=== PATIENT | male | born 1935 | race Two or more races ===

== ENCOUNTER 2022-03-06 22:28 | Inpatient (IN) | payer MEDICARE, OTHER ==
[~2022-03-06] VITALS: Ht 165.1 cm; Wt 68.0 kg
--- NOTE | 2022-03-06 22:34 | NUR ---
[id number]. ABD PAIN W/ DISTENTION AND SCROTAL SWELLING X 3 DAYS. PLACED ON BED, AAOX4, BREATHING EVEN AND UNLABORED SATURATING AT 98%RA. SEEN AND EXAMINED BY .
--- NOTE | 2022-03-06 22:40 | NUR ---
SURGICAL FORCEPS FABRICATOR AT BED SIDE
--- NOTE | 2022-03-06 22:43 | NUR ---
PATIENT TAKEN TO CT VIA [facility]
[2022-03-06 22:47] LABS: BASOPHILS % (AUTO) 0.2 % (0.0-2.0); EOSINOPHILS % (AUTO) 0.2 % (0.0-6.0); HEMATOCRIT 45 % (39-51); HEMOGLOBIN 15.1 g/dL (13.5-17.5); LYMPHOCYTES # (AUTO) 0.7 K/uL (0.8-4.8); LYMPHOCYTES % (AUTO) 6.7 % (20.0-44.0); MEAN CORPUSCULAR HGB CONC 34 g/dl (31.0-36.0); MEAN CORPUSCULAR VOLUME 82 fL (80-96); MONOCYTES # (AUTO) 1.2 K/uL (0.1-1.30); MONOCYTES % (AUTO) 11.5 % (2.0-12.0); NEUTROPHILS # (AUTO) 8.4 K/uL (1.8-8.9); NEUTROPHILS % (AUTO) 81.4 % (43.0-81.0); PLATELET COUNT (AUTO) 167 K/uL (150-450); RED BLOOD CELL COUNT(AUTO) 5.47 MIL/uL (4.5-6.0); WHITE BLOOD COUNT (AUTO) 10.4 K/uL (4.3-11.0)
--- NOTE | 2022-03-06 22:51 | NUR ---
PT RETURNED TO ER BED7 FROM CT
--- NOTE | 2022-03-06 23:24 | NUR ---
URINE SAMPLE SENT TO LAB
[2022-03-06 23:37] LABS: BILIRUBIN,URINE NEGATIVE (NEGATIVE); COLOR,URINE YELLOW (YELLOW); LEUKOCYTE ESTERASE ,URINE TRACE (NEGATIVE); NITRITE, URINE NEGATIVE (NEGATIVE); PROTEIN,URINE 30 mg/dl (NEGATIVE); UGLUCOSE NEGATIVE (NEGATIVE)
[2022-03-06 23:58] LABS: BACTERIA,URINE Few /HPF (None Seen); RBC,URINE TOO NUMEROUS TO COUN /HPF (0-2); SQUAMOUS EPITHELIAL CELL,UR Rare /HPF (None Seen)
[2022-03-07 00:36] LABS: ALANINE AMINOTRANSFERASE 44 U/L (12-78); ALBUMIN 2.8 g/dL (3.4-5.0); ALKALINE PHOSPHATASE 75 U/L (46-116); ASPARTATE AMINOTRANSFERASE 43 U/L (15-37); BILIRUBIN,TOTAL 0.7 mg/dL (0.2-1.0); CALCIUM, SERUM 8.7 mg/dL (8.5-10.1); CARBON DIOXIDE 21 mmol/L (21-32); CHLORIDE 100 mmol/L (98-107); CREATININE 1.4 mg/dL (0.6-1.3); GLUCOSE 196 mg/dL (74-106); POTASSIUM 4.2 mmol/L (3.5-5.1); SODIUM SERUM 134 mmol/L (136-145); TOTAL PROTEIN, SERUM 6.7 g/dL (6.4-8.2); UREA NITROGEN, BLOOD 21 mg/dL (7-18)
[2022-03-07] MEDS ORDERED: ACETAMINOPHEN 325 MG TABLET PO PRN (03:00)
[2022-03-07] MEDS ORDERED: ONDANSETRON HCL/PF 4 MG/2 ML VIAL IVP PRN (03:00)
[2022-03-07] MEDS ORDERED: HYDROCODONE/APAP 5/325MG TABLET PO PRN (03:00)
[2022-03-07] MEDS ORDERED: Z GUARD REMEDY 4 OZ OINT TP PRN (03:00)
--- NOTE | 2022-03-07 03:49 | NUR ---
MRSA SWAB COLLECTED AND SENT TO LAB. PATIENT'S BELONGINGS LIST DONE.
--- NOTE | 2022-03-07 03:50 | NUR ---
REPORT GIVEN TO JARROD VELIZ.
--- NOTE | 2022-03-07 04:45 | NUR ---
MS GRINDER SET UP OPERATOR EXTERNAL NOTE RECEIVED THIS PATIENT FROM ER VIA [place]; AWAKE, ALERT AND ORIENTED X2. ADMITTED WITH C/C OF ABDOMINAL PAIN, URINARY DISTENTION AND SCROTAL SWELLING. PATIENT IS CHINESE SPEAKING UNDERSTAND SOME SINGAPOREAN. BREATHING IS EVEN AND NONLABORED. ON ROOM AIR; TOLERATING WELL. VITAL SIGNS TAKEN AND RECORDED FOLLOWS: TEMP-98.3, SC-82, RR-19, BP-141/67 MMHG, O2 SATURATION 98%. IN NO ACUTE DISTRESS NOTED. DENIES ANY PAIN OR DISCOMFORT OF THIS TIME. WITH IV ACCESS ON LEFT HAND; PATENT AND INTACT INFUSING WITH LR 1L REGULATED @ 75 ML/HR; FLUSHES WELL. SKIN ASSESSMENT DONE; WARM TO TOUCH. SCROTAL SWELLING NOTED. PICTURES TAKEN AND ATTACHED TO CHART. WITH POMPA CATHETER ATTACHED TO UROBAG DRAINING VIA GRAVITY TO BLOODY URINE. NEEDS ANTICIPATED AND ATTENDED. PERSONAL BELONGINGS CHECKED AND INVENTORY DONE. ORIENTED TO THE ROOM AND TO THE UNIT. SAFETY MEASURES IMPLEMENTED: CALL LIGHT AND TABLE WITHIN REACH, SIDE RAILS UP X2, BED IN LOWEST LOCKED POSITION. WILL CONTINUE TO MONITOR
[2022-03-07] MEDS: IV LR 1000 ML 1,000 ML IV PRN ×2 (05:19→22:12)
--- NOTE | 2022-03-07 07:03 | NUR ---
MS RN CLOSING NOTE PATIENT IS RESTING IN BED; ASLEEP, EASILY AROUSABLE UPON VERBAL STIMULI; STABLE. NO SIGNIFICANT CHANGE IN STATUS. ALL DUE MEDS GIVEN ORDERED. SAFETY MEASURES IN PLACE. ENDORSED TO MORNING SHIFT FOR ZEESHAN.
--- NOTE | 2022-03-07 07:15 | NUR ---
MS RN OPENING NOTE: RECEIVED PATIENT IN BED; AWAKE, A0X2-3, FARSI SPEAKING AND UNDERSTANDS A LITTLE BIT OF GERMAN. FAMILY AT BEDSIDE HELPS TO TRANSLATE. ABLE TO MAKE NEEDS KNOWN. NO COMPLAINT OF PAIN/DISCOMFORT AT THIS TIME. ON ROOM AIR WITH NO S/S OF RESPIRATORY DISTRESS. PT. IS ON BED REST WITH F/C THAT'S PATENT AND DRAINING WELL. PT. HAS IV ON L HAND WITH #20G, LR RUNNING AT 75ML/HR. PATENT AND RUNNING WELL WITH NO S/S OF PHLEBITIS AND INFILTRATION. SAFETY, FALL AND PRESSURE ULCER PRECAUTIONS IN PLACE: BED IN LOWEST AND LOCKED POSITION, SIDE RAILS UP X2, CALL LIGHT AND BELONGINGS WITHIN EASY REACH, BED ALARM ON, WILL TURN AND REPOSITION Q2H. WILL CONTINUE TO MONITOR FOR ANY CHANGES.
[2022-03-07 07:22] LABS: BASOPHILS % (AUTO) 0.3 % (0.0-2.0); EOSINOPHILS % (AUTO) 0.4 % (0.0-6.0); HEMATOCRIT 42 % (39-51); HEMOGLOBIN 14.2 g/dL (13.5-17.5); LYMPHOCYTES # (AUTO) 0.7 K/uL (0.8-4.8); LYMPHOCYTES % (AUTO) 8.1 % (20.0-44.0); MEAN CORPUSCULAR HGB CONC 33 g/dl (31.0-36.0); MEAN CORPUSCULAR VOLUME 82 fL (80-96); MONOCYTES # (AUTO) 1.3 K/uL (0.1-1.30); MONOCYTES % (AUTO) 14.4 % (2.0-12.0); NEUTROPHILS # (AUTO) 6.7 K/uL (1.8-8.9); NEUTROPHILS % (AUTO) 76.8 % (43.0-81.0); PLATELET COUNT (AUTO) 169 K/uL (150-450); RED BLOOD CELL COUNT(AUTO) 5.15 MIL/uL (4.5-6.0); WHITE BLOOD COUNT (AUTO) 8.8 K/uL (4.3-11.0)
[2022-03-07] MEDS: PANTOPRAZOLE 40 MG TABLET.DR PO SCH (08:01)
[2022-03-07 08:12] LABS: CALCIUM, SERUM 8.4 mg/dL (8.5-10.1); CREATININE 1.1 mg/dL (0.6-1.3); MAGNESIUM 2.3 mg/dL (1.8-2.4)
[2022-03-07] MEDS ORDERED: HEPARIN SODIUM, PORCINE 5000 UNITS/1 ML VIAL SQ SCH (09:00)
[2022-03-07 09:54] VITALS: BP 158/78
[2022-03-07] MEDS ORDERED: RIBO100T3 PO (11:34)
[2022-03-07] MEDS ORDERED: SODI1TAB66 PO (11:34)
[2022-03-07] MEDS ORDERED: TAMS-12 PO (11:34)
[2022-03-07] MEDS ORDERED: FLUT1BLS6 INH (11:34)
[2022-03-07] MEDS ORDERED: MELA5TAB PO (11:34)
[2022-03-07] MEDS ORDERED: IBAN150T16 PO (11:34)
[2022-03-07] MEDS ORDERED: FLUT16SP16 BNOSTRILS (11:34)
[2022-03-07] MEDS ORDERED: METO25TA20 PO (11:34)
[2022-03-07] MEDS ORDERED: ERGO500093 PO (11:34)
[2022-03-07] MEDS ORDERED: DOCU-141 PO (11:34)
[2022-03-07] MEDS ORDERED: METF500T3 PO (11:34)
[2022-03-07] MEDS ORDERED: ROSU10TA29 PO (11:34)
[2022-03-07] MEDS ORDERED: CITA20TA16 PO (11:34)
[2022-03-07] MEDS ORDERED: DICL100G34 TP (11:34)
[2022-03-07] MEDS ORDERED: PANT40TA2 PO (11:34)
[2022-03-07] MEDS: CEFTRIAXONE 1 G in IV D5W 50 ML IV SCH (13:49)
[2022-03-07 16:03] VITALS: BP 124/70
[2022-03-07] MEDS ORDERED: Medication Not On Formulary EA (Melatonin 5 MG) PO SCH (18:00)
[2022-03-07] MEDS: CITALOPRAM HYDROBROMIDE 20 MG TABLET PO SCH (18:37)
[2022-03-07] MEDS: ATORVASTATIN 10 MG TABLET PO SCH (18:37)
[2022-03-07] MEDS: DOCUSATE SODIUM 100 MG CAPSULE PO SCH (18:37)
[2022-03-07] MEDS: TAMSULOSIN 0.4 MG CAP.SR.24H PO SCH (18:37)
[2022-03-07] MEDS: SODIUM CHLORIDE 1000 MG TABLET PO SCH (18:37)
--- NOTE | 2022-03-07 19:20 | NUR ---
MS RN CLOSING NOTE: PATIENT REMAINS IN BED; AWAKE, A0X2-3, FARSI SPEAKING AND UNDERSTANDS A LITTLE BIT OF JAPANESE. FAMILY HELPS TO TRANSLATE. ABLE TO MAKE NEEDS KNOWN. NO COMPLAINT OF PAIN/DISCOMFORT AT THIS TIME. REMAINS ON ROOM AIR, BREATHING EVEN AND UNLABORED. PT. HAS F/C THAT'S PATENT AND DRAINING WELL WITH OUTPUT OF 325 ML OF BLOODY URINE THIS SHIFT. MD AWARE. AFTER 12NN, PT. STARTED TO HAVE DEVICE REPAIR TECHNICIAN PINK TO YELLOW CLEAR URINE OUTPUT. PT. HAS IV ON L HAND WITH #20G, LR RUNNING AT 75ML/HR. PATENT AND RUNNING WELL WITH NO S/S OF PHLEBITIS AND INFILTRATION. SAFETY, FALL AND PRESSURE ULCER PRECAUTIONS MAINTAINED: BED IN LOWEST AND LOCKED POSITION, SIDE RAILS UP X2, CALL LIGHT AND BELONGINGS WITHIN EASY REACH, BED ALARM ON, ENCOURAGED PT. REPOSITIONING IN BED AT LEAST Q2H. WILL ENDORSE CONTINUITY OF CARE TO LANGUAGE PATH RN.
--- NOTE | 2022-03-07 19:22 | NUR ---
RN NOTES. PT TRYING TO PULLOUT F/C AND IV SITE.NOTED BLOODY URINE ON THE BAG.HIS TRYING TO GET OUT FROM BED.I TEXTED WITH A NEW ORDER BOTH WRIST RESTRAINE. AND FOLLOW PROTOCOL.
--- NOTE | 2022-03-07 19:34 | NUR ---
RN OPENING NOTES. RECEIVED PATIENT IN BED [id number], FARSI SPEAKING AND UNDERSTANDS A LITTLE BIT OF [place]. PT.MIKEL WELL ON RM AIR WITH NO SIGN SOB/DISTRESS NOTED.IV ACCESS L HAND #20G, LR RUNNING AT 75ML/HR. PATENT AND INTACT.SAFETY,SAFETY MEASURE IN PLACE.BED IN LOWEST AND LOCKED POSITION, SIDE RAILS UP X2, CALL LIGHT WITHIN REACH.BED ALARM ON,WILL CONTINUE TO MONITOR.
[2022-03-07 20:00] VITALS: BP 164/82
[2022-03-07] MEDS: FINASTERIDE (5 MG) 5 MG TABLET PO SCH (22:29)
--- NOTE | 2022-03-08 01:10 | NUR ---
RN NOTES PT NOTED HIS TRYING PULLOUT THE F/C WITH HIS RT HAND.I WAS TELLING HIM NOT TO PULLOUT F/C ALSO GENTLY PULLING HIS HAND FROM F/C.I WAS TRYING TO REPOSITION THE F/C AWAY THAT HE CANNOT REACH IT AND HE KICK ME IN MY CHEST THEN I WALKED AWAY.I TEXTED ELY WITH A NEW ORDERS.
[2022-03-08] MEDS ORDERED: LORAZEPAM INJ 2 MG/ML VIAL IV ONE (01:30)
[2022-03-08] MEDS ORDERED: diphenhydrAMINE HCL 50 MG/ML VIAL IV ONE (01:30)
--- NOTE | 2022-03-08 01:46 | NUR ---
RN NOTES PT CONTINUE SCREAMING,YELLING,PULLING THE IV SITE.KICKING,STRIKING TO NURSES.6 NURSES HELP TO CALM HIM DOWNE.ATIVAN 1MG AND BENADRYL 25MG ONCE WAS GIVEN ORDERD.NO SIGN A/R NOTED.
[2022-03-08 06:54] LABS: BASOPHILS % (AUTO) 0.2 % (0.0-2.0); EOSINOPHILS % (AUTO) 0.6 % (0.0-6.0); HEMATOCRIT 45 % (39-51); LYMPHOCYTES # (AUTO) 1.1 K/uL (0.8-4.8); LYMPHOCYTES % (AUTO) 11.4 % (20.0-44.0); MEAN CORPUSCULAR HGB CONC 34 g/dl (31.0-36.0); MEAN CORPUSCULAR VOLUME 83 fL (80-96); MONOCYTES # (AUTO) 1.4 K/uL (0.1-1.30); MONOCYTES % (AUTO) 14.7 % (2.0-12.0); NEUTROPHILS # (AUTO) 7.1 K/uL (1.8-8.9); NEUTROPHILS % (AUTO) 73.1 % (43.0-81.0); PLATELET COUNT (AUTO) 190 K/uL (150-450); RED BLOOD CELL COUNT(AUTO) 5.42 MIL/uL (4.5-6.0); WHITE BLOOD COUNT (AUTO) 9.7 K/uL (4.3-11.0)
--- NOTE | 2022-03-08 06:59 | NUR ---
RN CLOSING NOTES. PATIENT IN BED SLEEPING BUT EASY TO AROUSED.AOX2 WITH CONFUSION.FARSI SPEAKING AND UNDERSTANDS A LITTLE BIT OF [place].MIKEL WELL ON RM AIR WITH NO SIGN SOB/DISTRESS NOTED.IV ACCESS RICK #20G, LR RUNNING AT 75ML/HR. PATENT AND INTACT.F/C PATENT DRAINING BLOOD THIN URINE CAUSED PT TRYING TO PULLOUT.SAFETY MEASURE IN PLACE.BED IN LOWEST AND LOCKED POSITION, SIDE RAILS UP X2, CALL LIGHT WITHIN REACH.BED ALARM ON,WILL ENDORSED TO NEXT SHIFT.
[2022-03-08 07:17] LABS: CALCIUM, SERUM 9.3 mg/dL (8.5-10.1); CREATININE 1.1 mg/dL (0.6-1.3); MAGNESIUM 2.4 mg/dL (1.8-2.4); PHOSPHORUS 4.1 mg/dL (2.5-4.9); POTASSIUM 4.4 mmol/L (3.5-5.1)
[2022-03-08] MEDS: PANTOPRAZOLE 40 MG TABLET.DR PO SCH ×2 (07:30→09:07)
--- NOTE | 2022-03-08 07:30 | NUR ---
RN MS NOTES PT IN BED, ASLEEP, EASY TO AROUSE, ALERT, NOT IN DISTRESS, CALL LIGHT WITHIN REACH, F/C INTACT AND DRAINING WELL WITH BLOOD TINGED URINE, SEEN BY PHYSICAL THERAPIST, KEPT COMFORTABLE IN BED.
[2022-03-08 08:00] VITALS: BP 161/91
[2022-03-08] MEDS ORDERED: Medication Not On Formulary EA (Fluticasone/Umeclidin/Vilanter (Trelegy Ellipta 100-62.5 INH SCH (09:00)
[2022-03-08] MEDS ORDERED: RIBOFLAVIN 100 MG PO SCH (09:00)
[2022-03-08] MEDS: METOPROLOL TARTRATE 25 MG TABLET PO SCH (09:06)
[2022-03-08] MEDS: DOCUSATE SODIUM 100 MG CAPSULE PO SCH ×2 (09:06→17:24)
[2022-03-08] MEDS: SODIUM CHLORIDE 1000 MG TABLET PO SCH ×2 (09:06→17:24)
[2022-03-08] MEDS: FINASTERIDE (5 MG) 5 MG TABLET PO SCH (09:06)
--- NOTE | 2022-03-08 11:27 | NUR ---
RN MS NOTES ENDORSED PT TO PEDRO GARAY FOR CONTINUITY OF CARE.
[2022-03-08] MEDS: CEFTRIAXONE 1 G in IV D5W 50 ML IV SCH (12:13)
[2022-03-08] MEDS ORDERED: OLANZAPINE 2.5 MG TABLET PO PRN (12:30)
[2022-03-08] MEDS: ATORVASTATIN 10 MG TABLET PO SCH (17:24)
[2022-03-08] MEDS: CITALOPRAM HYDROBROMIDE 20 MG TABLET PO SCH (17:24)
[2022-03-08] MEDS: TAMSULOSIN 0.4 MG CAP.SR.24H PO SCH (17:24)
[2022-03-08] MEDS: AMLODIPINE BESYLATE 5 MG TABLET PO SCH (18:44)
--- NOTE | 2022-03-08 18:55 | NUR ---
RN CLOSING NOTE PATIENT IN BED SLEEPING BUT EASY TO WAKE UP. PATIENT IS AOX2 WITH SOME CONFUSION.FARSI SPEAKING AND UNDERSTANDS A LITTLE BIT OF ROMANIAN.ON ROOM AIR, TOLERATED WELL, WITH NO SIGN SOB/DISTRESS NOTED.IV ACCESS RICK #20G, ON SALINE LOCK. WITH POMPA CATHETER TO URINE BAG, WITH SOME BLOODY SEDIMENTS BUT URINE HAD CLEARED ALREADY. SAFETY MEASURE IN PLACE. BED IN LOWEST AND LOCKED POSITION, SIDE RAILS UP X2, CALL LIGHT WITHIN REACH.BED ALARM ON. ENDORSED TO NEXT SHIFT FOR CONTINUITY OF CARE.
--- NOTE | 2022-03-08 19:35 | NUR ---
RN OPENING NOTE PATIENT IN BED SLEEPING BUT EASY TO WAKE UP. PATIENT IS AOX2 WITH SOME CONFUSION.FARSI SPEAKING AND UNDERSTANDS A LITTLE BIT OF [place].ON ROOM AIR, TOLERATED WELL, WITH NO SIGN SOB/DISTRESS NOTED.IV ACCESS RICK #20G, ON SALINE LOCK. WITH POMPA CATHETER TO URINE BAG, SAFETY MEASURE IN PLACE. BED IN LOWEST AND LOCKED POSITION, SIDE RAILS UP X2, CALL LIGHT WITHIN REACH.BED ALARM ON. WILL CONTINUE TO MONITOR.
[2022-03-08 20:00] VITALS: BP 113/65
[2022-03-08] MEDS: OLANZAPINE 2.5 MG TABLET PO SCH (21:54)
--- NOTE | 2022-03-09 00:06 | NUR ---
RN NOTES PTS SCROTUM ULTRASOUND RESULTED INFORMED FREEZER OPERATOR ERMELINDA. NO NEW ORDERS AT THIS TIME. WILL LET MORNING NURSE F/U WIT PRIMARY PHYSICIAN.
[2022-03-09] MEDS ORDERED: DEXTROSE 50%-WATER 50 ML DISP.SYRIN IV PRN (05:30)
[2022-03-09] MEDS ORDERED: INSULIN REGULAR, HUMAN 100 UNIT/ML 3 ML VIAL SQ PRN (05:30)
--- NOTE | 2022-03-09 06:43 | NUR ---
RN CLOSING NOTE PATIENT IN BED SLEEPING BUT EASY TO WAKE UP. PATIENT IS AOX2 WITH SOME CONFUSION.FARSI SPEAKING AND UNDERSTANDS A LITTLE BIT OF [place]OURG[place].ON ROOM AIR, TOLERATED WELL, WITH NO SIGN SOB/DISTRESS NOTED.IV ACCESS RICK #20G, ON SALINE LOCK. WITH POMPA CATHETER TO URINE BAG, SAFETY MEASURE IN PLACE. BED IN LOWEST AND LOCKED POSITION, SIDE RAILS UP X2, CALL LIGHT WITHIN REACH.BED ALARM ON. WILL ENDORSE CARE TO DAY SHIFT NURSE.
[2022-03-09] MEDS ORDERED: BLOOD SUGAR DIAGNOSTIC 1 EACH STRIP IN SCH (07:30)
--- NOTE | 2022-03-09 07:30 | NUR ---
MS RN OPENING NOTES. RECEIVED PATIENT IN BED A0X2-3, FARSI SPEAKING AND UNDERSTANDS A LITTLE BIT OF [place]CC[place]. PT.MIKEL WELL ON ROOM AIR WITH NO SIGN SOB/DISTRESS NOTED , NO C/O OF PAIN AND DISCOMFORT IV ACCESS L HAND #20G SL PATENT AND INTACT ,SAFETY MEASURES IN PLACE. BED IN LOWEST AND LOCKED POSITION, SIDE RAILS UP X2, CALL LIGHT WITHIN REACH.BED ALARM ON,WILL CONTINUE TO MONITOR.
[2022-03-09 08:00] VITALS: BP 101/65
[2022-03-09] MEDS: PANTOPRAZOLE 40 MG TABLET.DR PO SCH (08:34)
[2022-03-09] MEDS: METOPROLOL TARTRATE 25 MG TABLET PO SCH (09:30)
[2022-03-09] MEDS: AMLODIPINE BESYLATE 5 MG TABLET PO SCH ×2 (09:31→17:02)
[2022-03-09] MEDS: SODIUM CHLORIDE 1000 MG TABLET PO SCH ×2 (09:32→17:03)
[2022-03-09] MEDS: DOCUSATE SODIUM 100 MG CAPSULE PO SCH ×2 (09:32→17:03)
--- NOTE | 2022-03-09 09:50 | NUR ---
MS/RN OPENING NOTE RECEIVED PATIENT RESTING IN BED. AWAKE, ALERT AND ORIENTED X 2. PRIMARILY FARSI SPEAKING. ABLE TO MAKE NEEDS KNOWN. DENIES PAIN AT THIS TIME. CONTINUES ON ROOM AIR WITH NO S/SX OF RESPIRATORY DISTRESS NOTED. IV ACCESS TO RIGHT UPPER ARM #20G INTACT AND PATENT. CONTINUES ON IVF LR @ 75ML/HR. CONTINUES ON IV ABX. CALL LIGHT WITHIN REACH. ASPIRATION, FALL AND SAFETY PRECAUTIONS MAINTAINED. ALL NEEDS ATTENDED TO AT THIS TIME. Addendum: 03/09/22 at 2009 by CARL FOSTER RN TIME OF NOTE IS 1950.
[2022-03-09] MEDS: FINASTERIDE (5 MG) 5 MG TABLET PO SCH (10:43)
[2022-03-09 11:17] LABS: PROSTATE SPECIFIC ANTIGEN SCR 14.46 ng/mL (0.00-4.00)
[2022-03-09] MEDS: CITALOPRAM HYDROBROMIDE 20 MG TABLET PO SCH (17:06)
[2022-03-09] MEDS: ATORVASTATIN 10 MG TABLET PO SCH (17:35)
[2022-03-09] MEDS: TAMSULOSIN 0.4 MG CAP.SR.24H PO SCH (17:35)
--- NOTE | 2022-03-09 19:11 | NUR ---
MS RN CLOSING NOTE Patient in bed, resting comfortably. A/O x 2-3, able to make needs known. On room air, breathing evenly and unlabored. No SOB or s/s of distress noted. IV access on RICK #20 infusing LR at 75 ml/hr. Due meds given. All needs attended to. Patient denies any pain or discomfort at this time. Safety measures maintained: bed in low, locked position; siderails up x 2; call light within reach. Will endorse to shift foreman nurse for ZEESHAN.
[2022-03-09 20:00] VITALS: BP 130/80
[2022-03-09] MEDS: OLANZAPINE 2.5 MG TABLET PO SCH (21:37)
--- NOTE | 2022-03-10 06:50 | NUR ---
MS/RN CLOSING NOTE PATIENT CURRENTLY SLEEPING IN BED. ALERT AND ORIENTED X 2. PRIMARILY FARSI SPEAKING. ABLE TO MAKE NEEDS KNOWN. DENIES PAIN AT THIS TIME. CONTINUES ON ROOM AIR WITH NO S/SX OF RESPIRATORY DISTRESS NOTED. IV ACCESS TO RIGHT UPPER ARM #20G INTACT AND PATENT. CONTINUES ON IVF LR @ 75ML/HR. CALL LIGHT WITHIN REACH. ASPIRATION, FALL AND SAFETY PRECAUTIONS MAINTAINED. WILL ENDORSE PLAN OF CARE TO ONCOMING SHIFT RN.
--- NOTE | 2022-03-10 07:57 | NUR ---
RN OPENING NOTE PATIENT RECEIVED IN BED, AO X 2-3, FARSI SPEAKING, ABLE TO RESPONDS ALL STIMULI. IN NO ACUTE DISTRESS NOTED. RESPIRATORY EVEN AND UNLABORED ON OXYGEN AT 2 Ls VIA NC. SKIN IS WARM TO TOUCH, KEEP CLEAN/DRY. KEPT ELEVATED HOB FOR ENSURE AIRWAY AND ASPIRATION PRECAUTION, ALSO LOWEST POSITION OF THE BED, S/R UP X 3, BED ALARM IS ON AT ALL THE TIMES. ALL SAFETY PRECAUTION APPLIED. CALL LIGHT WITHIN REACH, WILL CONTINUE TO MONITOR.
--- NOTE | 2022-03-10 08:30 | NUR ---
PATIENT IS CONFUSING, REFUSED TAKE VITAL SIGNS. WILL HOLD BP MEDS FOR SAFETY AT THIS TIME.
[2022-03-10] MEDS: AMLODIPINE BESYLATE 5 MG TABLET PO SCH (09:00)
[2022-03-10] MEDS: METOPROLOL TARTRATE 25 MG TABLET PO SCH (09:00)
[2022-03-10] MEDS: FINASTERIDE (5 MG) 5 MG TABLET PO SCH (09:07)
[2022-03-10] MEDS: DOCUSATE SODIUM 100 MG CAPSULE PO SCH (09:07)
[2022-03-10] MEDS: SODIUM CHLORIDE 1000 MG TABLET PO SCH (09:07)
[2022-03-10] MEDS: PANTOPRAZOLE 40 MG TABLET.DR PO SCH (09:11)
--- NOTE | 2022-03-10 09:54 | NUR ---
PATIENT CONFUSE, DOES NOT LISTEN WHAT STAFF SAYS, OUT OF THE BED, SCREAMING AT HALLWAY, AND AGITATING. CALLED DRT TO SPOKE WITH PATIENT BUT PATIENT STILL AGITATING.NRE ORDER RESTRAIN FOR PATIENT SAFETY. WILL CONTINUE TO MONITOR.
[2022-03-10] MEDS ORDERED: Olanzapine PO ×2 (11:13)
[2022-03-10] MEDS ORDERED: FINA5TAB3 PO (11:13)
--- NOTE | 2022-03-10 15:30 | NUR ---
PATIENT D/C HOME WITH HOME HEALTH, GIVEN DISCHARGE INSTRUCTION TO DTR/MJ INCLUDE NEW MEDICATION AND SIDE EFFECTS. PATIENT IN STABLE CONDITION, REFUSED TAKE WOUND PICTURE FOR SCROTUM REDNESS.
[2022-03-11] MEDS ORDERED: ERGOCALCIFEROL (VITAMIN D 2) 50,000 UNIT CAPSULE PO SCH (09:00)
[2022-04-06] MEDS ORDERED: Medication Not On Formulary EA (Ibandronate Sodium (Boniva) 150 MG) PO SCH (09:00)
== END 2022-03-10 15:40 | disposition home health service (06) | DRG 725 ==
LOC: ER 22:30 → MED 03-07 03:35
PROVIDERS: ADMIT Student in an Organized Health Care Education/Training Program; ATTEND Internal Medicine
DX: N40.1 Benign prostatic hyperplasia with lower urinary tract symptoms (principal); N17.0 Acute kidney failure with tubular necrosis; E44.0 Moderate protein-calorie malnutrition; N39.0 Urinary tract infection, site not specified; E87.1 Hypo-osmolality and hyponatremia; I31.3 Pericardial effusion (noninflammatory); J90 Pleural effusion, not elsewhere classified; E11.9 Type 2 diabetes mellitus without complications; E78.5 Hyperlipidemia, unspecified; Z20.822 Contact with and (suspected) exposure to COVID-19; E88.09 Other disorders of plasma-protein metabolism, not elsewhere classified; I10 Essential (primary) hypertension; R31.9 Hematuria, unspecified; Z91.81 History of falling; K57.30 Diverticulosis of large intestine without perforation or abscess without bleeding; N32.89 Other specified disorders of bladder; R33.8 Other retention of urine
CPT/HCPCS: 36415; 71045-TC; 76870-TC; 80048-TC; 80053-TC; 81001; 82962-TC; 83690-TC; 83735-TC; 83880; 84100-TC; 84153-TC; 84154-TC; 85025-TC; 87081-TC; 87086-TC; 93307-TC; 97116-TC; 97530-TC; C9803; G0378; J0696; J1200; J1644; J2060; J7060; J7120